=== PATIENT | male | born 1950 | race Caucasian/White ===

== ENCOUNTER 2022-05-07 16:26 | Inpatient (IN) ==
[2022-05-07] MEDS ORDERED: Piperacillin/Tazobactam 3.375 GM in 0.9 % Sodium Chloride Mini Bag 100 ML IVPB ONE (18:20)
[2022-05-07] MEDS ORDERED: 0.9 % Sodium Chloride 500 ML IVC ONE ×2 (18:20→21:15)
[2022-05-07 18:30] LABS: VBG HCO3 24 mEq/L (21-27); VBG PCO2 38 mmHg (41-51); VBG PH 7.42 pH Units (7.32-7.42); VBG PO2 79 mmHg (25-50)
[2022-05-07 18:37] LABS: INR 1.6; Prothrombin Time 18.1 Seconds (9.4-12.1)
[2022-05-07 19:10] LABS: Alanine Aminotransferase 17 Units/L (7-52); Albumin/Globulin Ratio 0.8 (1.1-2.2); Alkaline Phosphatase 85 Units/L (34-104); Aspartate Amino Transferase 31 Units/L (13-39); Bilirubin,Direct 0.1 mg/dL (0.0-0.2); Bilirubin,Indirect 0.7 mg/dL (0.0-1.0); Bilirubin,Total 0.8 mg/dL (0.3-1.0); Ethanol < 10 mg/dL (Less than 10); Globulin 3.8 g/dL (2.4-3.5); Lipase 9 Units/L (11-82); Thyroid Stimulating Hormone 2.329 mcIU/mL (0.340-5.600); Total Protein 6.8 g/dL (6.4-8.9)
[2022-05-07 19:26] LABS: Bilirubin,Urine Small (Negative); Blood,Urine Moderate (Negative); Clarity,Urine Cloudy (Clear); Color,Urine Yellow (Yellow); Glucose,Urine (UA) Normal (Normal); Ketones,Urine Negative (Negative); Leukocyte Esterase,Urine Large (Negative); Nitrite,Urine Positive (Negative); Protein,Urine 100 mg/dL (Neg-Trace)
[2022-05-07 19:27] LABS: Bacteria,Urine Many per hpf (None-Few); Mucus,Urine Few per lpf (None-Few); RBC,Urine 0-3 per hpf (0-3); WBC,Urine 50-100 per hpf (0-3)
[2022-05-07 19:43] LABS: Amphetamine Screen,Urine Negative ng/mL (Cutoff=1000); Barbiturate Screen,Urine Negative ng/mL (Cutoff=200); Benzodiazepines Screen,Urine Negative ng/mL (Cutoff=200); Cannabinoid Screen,Urine Positive ng/mL (Cutoff = 50); Cocaine Screen,Urine Negative ng/mL (Cutoff= 300); Opiate Screen,Urine Negative ng/mL (Cutoff=300); Phencyclidine Screen,Urine Negative ng/mL (Cutoff=25)
[2022-05-07 20:08] LABS: Adenovirus Not Detected (Not Detect); Bordetella Pertussis Not Detected (Not Detect); Chlamydophila pneumoniae Not Detected (Not Detect); Coronavirus 229E Not Detected (Not Detect); Coronavirus HKU1 Not Detected (Not Detect); Coronavirus NL63 Not Detected (Not Detect); Coronavirus OC43 Not Detected (Not Detect); Human Metapneumovirus Not Detected (Not Detect); Human Rhinovirus/Enterovirus Not Detected (Not Detect); Influenza A Subtype 2009 H1 Not Detected (Not Detect); Influenza B Not Detected (Not Detect); Mycoplasma pneumoniae Not Detected (Not Detect); Parainfluenza Virus 1 Not Detected (Not Detect); Parainfluenza Virus 2 Not Detected (Not Detect); Parainfluenza Virus 3 Not Detected (Not Detect); Parainfluenza Virus 4 Not Detected (Not Detect); Respiratory Syncytial Virus Not Detected (Not Detect); SARS-CoV-2 Not Detected (Not Detect)
[2022-05-07] MEDS ORDERED: *HR* OxyCODONE Immed Rel 5 MG TABLET PO PRN (21:25)
[2022-05-07] MEDS ORDERED: Acetaminophen 325 MG TABLET PO PRN (21:25)
[2022-05-07] MEDS ORDERED: Ondansetron 4 MG/2 ML VIAL IVP PRN (21:25)
[2022-05-07] MEDS ORDERED: Melatonin 3 MG TABLET PO PRN (21:25)
[2022-05-07] MEDS ORDERED: Naloxone 0.4 MG/ML INJ IVP PRN (21:25)
[2022-05-07] MEDS ORDERED: *HR* HYDROcodone/Acet 5/325 mg TABLET PO PRN (21:25)
[2022-05-07] MEDS ORDERED: Ipratropium/Albuterol Neb 3 ML IH PRN (23:43)
[2022-05-08] MEDS: Ringers Solution, Lactated 1,000 ML IVC SCH ×3 (00:12→14:26)
[2022-05-08 05:49] LABS: Basophils % 0.1 %; Eosinophils % 0.1 %; Hematocrit 36.5 % (37.5-50.1); Hemoglobin 12.5 g/dL (12.9-16.9); Immature Granulocytes % 0.8 % (0-4); Lymphocytes # 1.2 K/mcL (0.6-4.6); Lymphocytes % 6.7 %; Mean Corpuscular HGB Conc 34.2 g/dL (31.6-35.5); Mean Corpuscular Volume 93.4 fL (83.0-100.0); Mean Platelet Volume 10.4 fL (9.4-12.4); Monocytes # 1.3 K/mcL (0.0-1.3); Monocytes % 7.3 %; Neutrophils # 14.7 K/mcL (1.6-8.9); Platelet Count 312 K/mcL (140-400); Red Blood Count 3.91 M/mcL (4.19-5.50); Red Cell Distribution Width 13.9 % (11.5-14.5); White Blood Count 17.3 K/mcL (4.3-11.1)
[2022-05-08 05:57] LABS: INR 1.8; Prothrombin Time 19.5 Seconds (9.4-12.1)
[2022-05-08 06:09] LABS: Calcium 8.3 mg/dL (8.6-10.3); Magnesium 1.7 mg/dL (1.6-2.6); Phosphorous 2.1 mg/dL (2.7-4.5); Potassium 3.6 mEq/L (3.5-5.1)
[2022-05-08] MEDS ORDERED: DilTIAZem CD (24hr) 180 MG CAP.ER.24H PO SCH (09:00)
[2022-05-08] MEDS ORDERED: Aspirin Enteric Coated 81 MG Tablet PO SCH (09:00)
[2022-05-08] MEDS ORDERED: Carbidopa/Levodopa 25/100 TABLET PO SCH (09:00)
[2022-05-08] MEDS ORDERED: Fenofibrate 54 MG TABLET PO SCH (09:00)
[2022-05-08] MEDS ORDERED: cefTRIAXone 2,000 MG in 0.9 % Sodium Chloride 20 ML IVP SCH (09:00)
[2022-05-08] MEDS: Ipratropium/Albuterol Neb 3 ML IH SCH ×5 (10:21→23:15)
[2022-05-08] MEDS ORDERED: Ringers Solution, Lactated 1,000 ML IVC SCH (11:30)
[2022-05-08] MEDS ORDERED: *HR* FentaNYL (PF) 100 MCG/2 ML VIAL ONE ×2 (11:37→12:46)
[2022-05-08] MEDS ORDERED: Ondansetron 4 MG/2 ML VIAL ONE (11:37)
[2022-05-08] MEDS ORDERED: *HR* Propofol 200 MG/20 ML VIAL IVP ONE (11:37)
[2022-05-08] MEDS ORDERED: Lidocaine -MPF 2% 2 ML VIAL ONE (11:37)
[2022-05-08] MEDS ORDERED: *HR* Succinylcholine 200 MG/10 ML VIAL IVP ONE (12:21)
[2022-05-08] MEDS ORDERED: Lidocaine HCL 4 ML Topical Solution (Laryng-O-Jet Kit Sterile Pak) TP ONE (12:22)
[2022-05-08] MEDS ORDERED: Iopamidol - 300 50 ML VIAL ONE (12:37)
[2022-05-08] MEDS ORDERED: Albuterol 2.5 MG/3 ML NEBULIZER ONE (13:39)
[2022-05-08] MEDS ORDERED: Albuterol 2.5 MG/3 ML NEBULIZER IH ONE (13:44)
[2022-05-08] MEDS ORDERED: Melatonin 3 MG TABLET PO PRN (14:12)
[2022-05-08] MEDS ORDERED: Acetaminophen 325 MG TABLET PO PRN (14:12)
[2022-05-08] MEDS ORDERED: *HR* HYDROcodone/Acet 5/325 mg TABLET PO PRN (14:12)
[2022-05-08] MEDS ORDERED: Ondansetron 4 MG/2 ML VIAL IVP PRN (14:12)
[2022-05-08] MEDS ORDERED: *HR* OxyCODONE Immed Rel 5 MG TABLET PO PRN (14:12)
[2022-05-08] MEDS ORDERED: Naloxone 0.4 MG/ML INJ IVP PRN (14:12)
[2022-05-08] MEDS: Carbidopa/Levodopa 25/100 TABLET PO SCH ×2 (14:26→21:30)
[2022-05-08] MEDS: *HR* Heparin 5,000 UNIT/ML VIAL SQ SCH (17:59)
[2022-05-08] MEDS ORDERED: *HR* Heparin 5,000 UNIT/ML VIAL SQ SCH (18:00)
[2022-05-09] MEDS: Ringers Solution, Lactated 1,000 ML IVC SCH ×2 (01:29→13:28)
[2022-05-09] MEDS: Ipratropium/Albuterol Neb 3 ML IH SCH ×6 (03:41→23:00)
[2022-05-09] MEDS: *HR* Heparin 5,000 UNIT/ML VIAL SQ SCH ×2 (05:16→17:40)
[2022-05-09 05:39] LABS: Basophils % 0.1 %; Hematocrit 34.2 % (37.5-50.1); Hemoglobin 11.5 g/dL (12.9-16.9); Immature Granulocytes % 0.5 % (0-4); Lymphocytes # 0.8 K/mcL (0.6-4.6); Lymphocytes % 7.5 %; Mean Corpuscular HGB Conc 33.6 g/dL (31.6-35.5); Mean Corpuscular Hemoglobin 31.2 pg (28.0-33.3); Mean Corpuscular Volume 92.7 fL (83.0-100.0); Mean Platelet Volume 9.7 fL (9.4-12.4); Monocytes # 0.4 K/mcL (0.0-1.3); Neutrophils # 9.5 K/mcL (1.6-8.9); Platelet Count 293 K/mcL (140-400); Red Blood Count 3.69 M/mcL (4.19-5.50); Red Cell Distribution Width 13.9 % (11.5-14.5); Segmented Neutrophils % 87.9 %; White Blood Count 10.8 K/mcL (4.3-11.1)
[2022-05-09 05:56] LABS: Calcium 8.4 mg/dL (8.6-10.3); Potassium 2.9 mEq/L (3.5-5.1)
[2022-05-09] MEDS: Fenofibrate 54 MG TABLET PO SCH (08:37)
[2022-05-09] MEDS: Carbidopa/Levodopa 25/100 TABLET PO SCH ×3 (08:37→20:33)
[2022-05-09] MEDS: Aspirin Enteric Coated 81 MG Tablet PO SCH (08:37)
[2022-05-09] MEDS: DilTIAZem CD (24hr) 180 MG CAP.ER.24H PO SCH (08:37)
[2022-05-09] MEDS: cefTRIAXone 2,000 MG in 0.9 % Sodium Chloride 20 ML IVP SCH (08:38)
[2022-05-10 01:19] LABS: Hematocrit 32.5 % (37.5-50.1); Hemoglobin 11.1 g/dL (12.9-16.9); Mean Corpuscular HGB Conc 34.2 g/dL (31.6-35.5); Mean Corpuscular Hemoglobin 31.3 pg (28.0-33.3); Mean Corpuscular Volume 91.5 fL (83.0-100.0); Platelet Count 307 K/mcL (140-400); Red Blood Count 3.55 M/mcL (4.19-5.50); White Blood Count 13.1 K/mcL (4.3-11.1)
[2022-05-10 01:40] LABS: Calcium 7.8 mg/dL (8.6-10.3); Potassium 2.8 mEq/L (3.5-5.1)
[2022-05-10] MEDS: Ringers Solution, Lactated 1,000 ML IVC SCH ×2 (01:58→11:21)
[2022-05-10] MEDS: Ipratropium/Albuterol Neb 3 ML IH SCH ×7 (03:46→23:46)
[2022-05-10] MEDS: *HR* Heparin 5,000 UNIT/ML VIAL SQ SCH ×2 (06:06→17:17)
[2022-05-10] MEDS: Aspirin Enteric Coated 81 MG Tablet PO SCH (09:51)
[2022-05-10] MEDS: Fenofibrate 54 MG TABLET PO SCH (09:51)
[2022-05-10] MEDS: Carbidopa/Levodopa 25/100 TABLET PO SCH ×3 (09:51→21:19)
[2022-05-10] MEDS: DilTIAZem CD (24hr) 180 MG CAP.ER.24H PO SCH (09:51)
[2022-05-10] MEDS: cefTRIAXone 2,000 MG in 0.9 % Sodium Chloride 20 ML IVP SCH (09:51)
[2022-05-10 11:29] LABS: Adenovirus F 40/41 PCR Not detected (Not detect); Astrovirus PCR Not detected (Not detect); C.difficile Toxin A/B Gene PCR Not detected (Not detect); Campylobacter by PCR Not detected (Not detect); Cryptosporidium by PCR Not detected (Not detect); Cyclospora cayetanensis PCR Not detected (Not detect); Entamoeba histolytica PCR Not detected (Not detect); Enteroaggregative E.coli(EAEC) Not detected (Not detect); Enteropathogenic E.coli(EPEC) DETECTED (Not detect); Enterotoxigenic E.coli (ETEC) Not detected (Not detect); Giardia lamblia PCR Not detected (Not detect); Norovirus GI/GII PCR Not detected (Not detect); Plesiomonas shigelloides PCR Not detected (Not detect); Rotavirus A PCR Not detected (Not detect); Salmonella PCR Not detected (Not detect); Sapovirus PCR Not detected (Not detect); Shig/EnteroinvasiveE coli EIEC Not detected (Not detect); Shigalike tox-prod E coli STEC Not detected (Not detect); Vibrio PCR Not detected (Not detect); Vibrio cholerae PCR Not detected (Not detect); Yersinia enterocolitica PCR Not detected (Not detect)
[2022-05-11 01:49] LABS: Basophils % 0.2 %; Eosinophils # 0.1 K/mcL (0.0-0.6); Eosinophils % 1.3 %; Hematocrit 33.6 % (37.5-50.1); Hemoglobin 11.5 g/dL (12.9-16.9); Immature Granulocytes % 0.9 % (0-4); Lymphocytes # 1.8 K/mcL (0.6-4.6); Lymphocytes % 20.4 %; Mean Corpuscular HGB Conc 34.2 g/dL (31.6-35.5); Mean Corpuscular Hemoglobin 31.3 pg (28.0-33.3); Mean Corpuscular Volume 91.6 fL (83.0-100.0); Monocytes # 0.5 K/mcL (0.0-1.3); Monocytes % 5.9 %; Neutrophils # 6.4 K/mcL (1.6-8.9); Platelet Count 319 K/mcL (140-400); Red Blood Count 3.67 M/mcL (4.19-5.50); Red Cell Distribution Width 13.9 % (11.5-14.5); Segmented Neutrophils % 71.3 %; White Blood Count 8.9 K/mcL (4.3-11.1)
[2022-05-11 02:07] LABS: Calcium 7.9 mg/dL (8.6-10.3); Magnesium 1.4 mg/dL (1.6-2.6); Potassium 3.1 mEq/L (3.5-5.1)
[2022-05-11] MEDS: Ipratropium/Albuterol Neb 3 ML IH SCH ×3 (03:35→11:31)
[2022-05-11] MEDS: *HR* Heparin 5,000 UNIT/ML VIAL SQ SCH (06:13)
[2022-05-11 08:11] VITALS: O2SAT 90
[2022-05-11] MEDS: Aspirin Enteric Coated 81 MG Tablet PO SCH (09:22)
[2022-05-11] MEDS: Fenofibrate 54 MG TABLET PO SCH (09:22)
[2022-05-11] MEDS: DilTIAZem CD (24hr) 180 MG CAP.ER.24H PO SCH (09:23)
[2022-05-11] MEDS: Carbidopa/Levodopa 25/100 TABLET PO SCH (09:23)
[2022-05-11] MEDS: cefTRIAXone 2,000 MG in 0.9 % Sodium Chloride 20 ML IVP SCH (10:17)
[2022-05-11 11:47] VITALS: BP 119/52; PULSE 80; TEMP 97.9
== END 2022-05-11 14:22 | disposition home or self-care (01) | DRG 854 ==
LOC: EMEROOARM 16:26 → 3ANU 21:41 → SUATTDRO 21:41 → 3ANU 22:47
PROVIDERS: ADMIT Internal Medicine; ATTEND Internal Medicine